=== PATIENT | male | born 1990 | race Caucasian/White ===

== ENCOUNTER 2018-10-27 12:40 | Emergency (ER) | payer MEDICAID ==
[~2018-10-27] VITALS: Ht 177.8 cm; Wt 108.9 kg
--- NOTE | 2018-10-27 12:52 | NUR ---
Dr Smith seen and examined the Pt.
--- NOTE | 2018-10-27 13:15 | NUR ---
Crutches dispensed. Pt instructed on proper use of crutches. Patient able to demonstrate correct use of crutches.
[2018-10-27 13:16] VITALS: BP 133/89
--- NOTE | 2018-10-27 13:19 | NUR ---
Patient discharged to home in stable conditon. Written and verbal after care instructions given. Patient verbalizes understanding of instructions.Pt left ER accompained by mother.
== END 2018-10-27 13:20 | disposition home or self-care (01) ==
LOC: ER 12:40
DX: S82.001A Unspecified fracture of right patella, initial encounter for closed fracture (principal); X50.1XXA Overexertion from prolonged static or awkward postures, initial encounter; Y93.89 Activity, other specified; Y92.89 Other specified places as the place of occurrence of the external cause; Y99.8 Other external cause status
CPT/HCPCS: A4663